=== PATIENT | female | born 1970 | race Caucasian/White ===

== ENCOUNTER 2017-02-05 13:55 | Emergency (ER) | payer BC ==
[~2017-02-05] VITALS: Ht 167.6 cm; Wt 66.1 kg
[~2017-02-05 13:55] MED LIST: CHOL100010 PO; LEVO100T7 PO; PRT/20 PO; SERT50TA PO
[2017-02-05 13:58] VITALS: Ht 167.6 cm; Wt 66.1 kg
[2017-02-05] MEDS ORDERED: ONDANSETRON INJ 2 MG/ML 2 ML VIAL IV STA (14:09)
[2017-02-05] MEDS ORDERED: MoRPHine SULFATE 10 MG/ML CARP/VIAL IV STA (14:09)
[2017-02-05] MEDS ORDERED: LXP10 PO (14:34)
[2017-02-05] MEDS ORDERED: CHOL1000 PO (14:34)
[2017-02-05] MEDS ORDERED: SODIUM CHLORIDE 0.9% 1000ML 1,000 ML IV STA (14:45)
[2017-02-05] MEDS ORDERED: MoRPHine SULFATE 4 MG/ML 1 ML CARP\\VIAL IV STA (14:45)
[2017-02-05] MEDS ORDERED: BACITRACIN OINT 15 GM TUBE ONE (15:38)
[2017-02-05] MEDS ORDERED: NURSING VERBAL MED ORDER ONE (15:38)
[2017-02-05] MEDS ORDERED: OXYC1TAB3 PO (16:37)
[2017-02-05 17:10] VITALS: BP 141/93; PULSE 62; TEMP 36.5; O2SAT 98
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
== END 2017-02-05 17:11 | disposition home or self-care (01) ==
LOC: C.EDB 13:57 → C.EDA 17:11
DX: T23.002A Burn of unspecified degree of left hand, unspecified site, initial encounter (principal); X12.XXXA Contact with other hot fluids, initial encounter; K21.9 Gastro-esophageal reflux disease without esophagitis; E05.90 Thyrotoxicosis, unspecified without thyrotoxic crisis or storm; Z80.9 Family history of malignant neoplasm, unspecified; Z83.3 Family history of diabetes mellitus; Z82.49 Family history of ischemic heart disease and other diseases of the circulatory system; Z79.899 Other long term (current) drug therapy

== ENCOUNTER → 2017-05-04 | Outpatient (CLI) | payer BC ==
[~2017-05-04] MED LIST changes: +CHOL1000 PO; -CHOL100010 PO; +LXP10 PO; +OXYC1TAB3 PO; -SERT50TA PO
== END | disposition home or self-care (01) ==
LOC: C.PAPS 10:12
PROVIDERS: ATTEND Obstetrics & Gynecology
DX: Z01.419 Encounter for gynecological examination (general) (routine) without abnormal findings (principal); Z11.51 Encounter for screening for human papillomavirus (HPV)

== ENCOUNTER → 2017-06-20 | Outpatient (CLI) | payer BC ==
--- NOTE | 2017-06-21 07:57 | MAMMOGRAPHY REPORT ---
BILATERAL DIGITAL SCREENING MAMMOGRAM TOMOSYNTHESIS WITH CAD: 06/20/2017 CLINICAL HISTORY: Routine screening. Patient has no complaints. TECHNIQUE: Breast tomosynthesis in addition to standard 2D mammography was performed. Current study was also evaluated with a Computer Aided Detection (CAD) system. COMPARISON: Comparison is made to exams dated: 06/17/2016 mammogram and 06/09/2012 mammogram - [facility]. BREAST COMPOSITION: The tissue of both breasts is heterogeneously dense, which may obscure small mas ses. FINDINGS: Mild involutional changes comparing to prior mammograms. No developing mass, architectura l distortion or cluster of suspicious microcalcifications is seen in either breast. IMPRESSION: ACR BI-RADS CATEGORY 2: BENIGN There is no mammographic evidence of malignancy. A 1 year screening mammogram is recommended. The pa tient will receive written notification of the results. Approximately 10% of breast cancers are not detected with mammography. A negative mammographic report should not delay biopsy if a clinically suggestive mass is present. Mary Riley M.D. ay/:06/20/2017 15:38:02 Director Card: Chery OLMEDO(Darrin)(Kitty)([place]), [facility] letter sent: Normal 1/2 BI-RADS Code: ACR BI-RADS Category 2: Benign
== END | disposition home or self-care (01) ==
LOC: C.MAMM 12:22
PROVIDERS: ATTEND Obstetrics & Gynecology
DX: Z12.31 Encounter for screening mammogram for malignant neoplasm of breast (principal)